=== PATIENT | male | born 1960 | race Caucasian/White ===

== ENCOUNTER → 2025-05-20 13:25 | Outpatient (BNVA) | payer OTHER, SELFPAY | PROVIDERS: PCP Family Medicine; Visit Provider Orthopaedic Surgery | DX: S22.069A Unspecified fracture of T7-T8 vertebra, initial encounter for closed fracture (principal); M54.9 Dorsalgia, unspecified; X58.XXXA Exposure to other specified factors, initial encounter | CPT/HCPCS: 72072 ==

== ENCOUNTER 2025-05-27 14:33 | Outpatient (CLI) | payer OTHER, SELFPAY ==
--- NOTE | 2025-05-27 15:15 | MR_ITS ---
WS: [id number] MRI THORACIC SPINE WITHOUT CONTRAST TECHNIQUE: Sagittal T1, T2 and STIR imaging. Axial T2 imaging. Noncontrast imaging obtained. CLINICAL INFORMATION: thoracic back pain COMPARISON: None. FINDINGS: Mild thoracic kyphosis. Acute appearing compression fracture with anterior wedging at T7 with loss of approximately 40% vertebral body height anteriorly. No significant retropulsion. Associated fracture cleft in the superior endplate with edema. Fracture cleft extends to the posterior cortex in the mid vertebral body. Pedicles appear grossly intact. No high-grade central canal stenosis. Cord signal is normal. Tiny LEFT paracentral protrusion T8-9 with slight effacement of the ventral thecal sac. Moderate facet arthropathy lower thoracic spine. Mild bony foraminal narrowing worse at LEFT T8-T9 and RIGHT T9-10 Small RIGHT renal cyst. Adrenal glands are normal. Small esophageal hiatal hernia. Normal caliber descending thoracic aorta. MR/MR thoracic spin wo con* [id number] IMPRESSION: 1. Acute compression T7 vertebral body superior endplate with anterior wedging and loss of approximately 40% vertebral body height anteriorly. No retropulsio n. Fracture cleft in the superior endplate extending to the posterior cortex in the mid vertebral body. Pedicles appear grossly intact. 2. No other acute appearing compression fractures. 3. Small LEFT paracentral protrusion T8-T9 4. Cord signal is normal.
== END 2025-05-27 14:34 | disposition home or self-care (01) ==
LOC: RAD 14:38
PROVIDERS: PCP Family Medicine; Visit Provider Orthopaedic Surgery
DX: M51.24 Other intervertebral disc displacement, thoracic region (principal); M40.04 Postural kyphosis, thoracic region; S22.060A Wedge compression fracture of T7-T8 vertebra, initial encounter for closed fracture; X58.XXXA Exposure to other specified factors, initial encounter; M47.812 Spondylosis without myelopathy or radiculopathy, cervical region; M99.62 Osseous and subluxation stenosis of intervertebral foramina of thoracic region
CPT/HCPCS: 72146

== ENCOUNTER → 2025-06-08 08:16 | Outpatient (BNVA) | payer OTHER, SELFPAY | PROVIDERS: PCP Family Medicine; Visit Provider Orthopaedic Surgery | DX: S22.060A Wedge compression fracture of T7-T8 vertebra, initial encounter for closed fracture (principal); X58.XXXA Exposure to other specified factors, initial encounter; Z09 Encounter for follow-up examination after completed treatment for conditions other than malignant neoplasm | CPT/HCPCS: 72100 ==

== ENCOUNTER 2025-06-23 05:00 | Outpatient (RCR) | payer OTHER, SELFPAY | END 2025-07-23 23:59 | disposition home or self-care (01) | LOC: SPT 05:00 | PROVIDERS: Visit Provider Orthopaedic Surgery | DX: M54.50 Low back pain, unspecified (principal); G89.29 Other chronic pain | CPT/HCPCS: 97161 ==